=== PATIENT | male | born 1995 | race Caucasian/White ===

== ENCOUNTER 2020-03-20 23:07 | Emergency (ER) | payer OTHER ==
[2020-03-20] MEDS ORDERED: LIDOCAINE VISCOUS 2% 15 ML UDC MM STA (23:24)
[2020-03-20] MEDS ORDERED: MAG HYDROX/AL HYDROX/SIMETH 30 ML UDC PO STA (23:25)
--- NOTE | 2020-03-20 23:27 | ED Physician Documentation ---
PD HPI CHEST PAIN - Stated complaint Stated Complaint: CP/SOA - Chief complaint Chief Complaint: Cardiac - History obtained from History obtained from: Patient - History of Present Illness Timing - onset: Yesterday Timing - onset during: Rest Timing - duration: Days (1) Timing - details: Gradual onset, Still present Pain level max: 6 Pain level now: 2 Quality: Pressure Location: Substernal Radiation: No: Jaw, Neck, Back, Abdominal, Left upper extremity, Right upper extremity Improved by: Nothing Worsened by: Other (NOTHING) Associated symptoms: Shortness of air. No: Diaphoresis, Nausea, Vomiting, Feeling faint / dizzy, General Weakness, Palpitations, Cough Similar symptoms before: Diagnosis (gastritis) Recently seen: Not recently seen - Additional information Additional information: Previously well 24-year-old male was sitting on his couch yesterday watching television when he developed some substernal chest pressure and he states this persisted overnight and was worse tonight while he was again sitting watching television. He does state that he has some heartburn periodically and he is not currently taking medication for that. He denies any current use of alcohol or ibuprofen. Review of Systems Constitutional: denies: Fever Eyes: denies: Decreased vision Ears: denies: Ear pain Nose: denies: Rhinorrhea / runny nose, Congestion Throat: denies: Sore throat Cardiac: reports: Chest pain / pressure. denies: Palpitations, Pedal edema, Calf pain Respiratory: reports: Dyspnea. denies: Cough GI: denies: Abdominal Pain, Nausea, Vomiting : denies: Dysuria, Frequency PD PAST MEDICAL HISTORY - Past Medical History Cardiovascular: None Respiratory: None Endocrine/Autoimmune: None GI: None : None HEENT: None Psych: None Musculoskeletal: None Derm: None - Past Surgical History Past Surgical History: No - Present Medications Home Medications: Ambulatory Orders Medication Instructions Recorded Confirmed Famotidine 20 mg PO DAILY #30 tablet 04/30/16 Sucralfate 1 gm PO QID #20 tablet 04/30/16 Tramadol HCl 50 mg PO Q6H PRN #20 tablet 04/30/16 Tums 2 mg PO DAILY 04/30/16 Famotidine [Pepcid] 20 mg PO BID #60 tablet 03/21/20 Sucralfate [Carafate] 1 gm PO ACHS #60 tablet 03/21/20 - Allergies Allergies/Adverse Reactions: Allergies Allergy/AdvReac Type Severity Reaction Status Date / Time No Known Drug Allergies Allergy Verified 03/20/20 23:19 - Social History Does the pt smoke?: Yes Smoking Status: Current every day smoker Does the pt drink ETOH?: Yes Does the pt have substance abuse?: No - Immunizations Immunizations are current?: Yes - POLST Patient has POLST: No PD ED PE NORMAL - Vitals Vital signs reviewed: Yes (Hypertensive mild) - General General: Alert and oriented X 3, No acute distress, Well developed/nourished - HEENT HEENT: Atraumatic, PERRL, EOMI - Neck Neck: Supple, no meningeal sign, No bony TTP - Cardiac Cardiac: RRR, No murmur - Respiratory Respiratory: No respiratory distress, Clear bilaterally, Other (No chest wall tenderness) - Abdomen Abdomen: Soft, Non tender - Back Back: No CVA TTP, No spinal TTP - Derm Derm: Normal color, Warm and dry, No rash - Extremities Extremities: No deformity, No edema - Neuro Neuro: Alert and oriented X 3, seismograph shooter 2-12 intact, No motor deficit, No sensory deficit, Normal speech Eye Opening: Spontaneous Motor: Obeys Commands Verbal: Oriented GCS Score: 15 - Psych Psych: Normal mood, Normal affect Results - Vitals Vitals: Vital Signs - 24 hr 03/20/20 03/21/20 03/21/20 23:10 00:19 01:26 Temperature 36.7 C Heart Rate 78 63 59 L Respiratory 18 18 18 Rate Blood Pressure 137/71 H 110/55 L 104/63 O2 Saturation 96 98 99 Oxygen O2 Source Room air - EKG (time done) 2319 Rate: Rate (enter#) (62) Rhythm: NSR Compare to prior EKG: Unchanged from prior EKG (SPT 08-10-2015 no changes) Computer interpretation: Agree with computer - Labs Labs: Laboratory Tests 03/20/20 03/20/20 03/20/20 23:35 23:35 23:35 WBC 7.3 RBC 4.62 L Hgb 14.6 Hct 42.1 MCV 91.1 MCH 31.6 H MCHC 34.7 RDW 11.8 L Plt Count 244 MPV 10.4 Neut # (Auto) 4.2 Lymph # (Auto) 1.9 Amelia # (Auto) 0.6 Eos # (Auto) 0.5 Baso # (Auto) 0.1 Absolute Nucleated RBC 0.00 Nucleated RBC % 0.0 Sodium 140 Potassium 3.8 Chloride 107 Carbon Dioxide 24 Anion Gap 9.0 BUN 13 Creatinine 1.0 Estimated GFR (MDRD) 90 Glucose 123 H Calcium 8.9 Total Bilirubin 0.9 AST 23 ALT 30 Alkaline Phosphatase 31 L Troponin I High Sens < 2.3 L Total Protein 6.9 Albumin 4.4 Globulin 2.5 Albumin/Globulin Ratio 1.8 Lipase 36 - Rads (name of study) Chest Radiology: Prelim report reviewed (Impression: No acute findings.), EMP read indepedently, See rad report PD MEDICAL DECISION MAKING - ED course Complexity details: reviewed old records, reviewed results, re-evaluated patient, considered differential, d/w patient ED course: 24-year-old male with a prior history of gastritis has developed some chest pressure and this appears to be associated with some heartburn as well. He is administered a GI cocktail consisting of 10 mL's of viscous lidocaine and 30 mL's of Mylanta which she has some improvement in both of his symptoms. He is further administered Pepcid AC and Carafate. We will place him on a course of both of these and have him follow-up with his primary. Departure - Departure Disposition: 01 Home, Self Care Clinical Impression: Atypical chest pain Gastroesophageal reflux disease Qualifiers: Esophagitis presence: with esophagitis Qualified Code(s): K21.0 - Gastro- esophageal reflux disease with esophagitis Condition: Stable Instructions: ED GERD, Famotidine, ED Chest Pain Atypical Unkn Cause Follow-Up: ANGELLA WALKER MD [Primary Care Provider] - Prescriptions: Sucralfate [Carafate] 1 gm PO ACHS #60 tablet Famotidine [Pepcid] 20 mg PO BID #60 tablet
[2020-03-20 23:41] LABS: BASOPHILS # (AUTO) 0.1 10^3/uL (0.0-0.1); BASOPHILS % (AUTO) 0.7 %; EOSINOPHILS # (AUTO) 0.5 10^3/uL (0.0-0.7); EOSINOPHILS % (AUTO) 6.9 %; HGB - HEMOGLOBIN 14.6 g/dL (14.0-18.0); LYMPHOCYTES # (AUTO) 1.9 10^3/uL (1.5-3.5); LYMPHOCYTES % (AUTO) 26.5 %; MEAN CORPUSCULAR HEMOGLOBIN 31.6 pg (27.0-31.0); MEAN CORPUSCULAR HGB CONC 34.7 g/dL (32.0-36.0); MEAN CORPUSCULAR VOLUME 91.1 fL (80.0-94.0); MEAN PLATELET VOLUME 10.4 fL (7.4-11.4); MONOCYTES # (AUTO) 0.6 10^3/uL (0.0-1.0); MONOCYTES % (AUTO) 8.1 %; NEUTROPHILS # (AUTO) 4.2 10^3/uL (1.5-6.6); NEUTROPHILS % (AUTO) 57.7 %; PLT - PLATELET COUNT 244 10^3/uL (130-450); RED BLOOD COUNT 4.62 10^6/uL (4.70-6.10); RED CELL DISTRIBUTION WIDTH 11.8 % (12.0-15.0); WHITE BLOOD COUNT 7.3 x10^3/uL (4.8-10.8)
[2020-03-20 23:57] LABS: ALBUMIN 4.4 g/dL (3.2-5.5); ALBUMIN/GLOBULIN RATIO 1.8 (1.0-2.2); BILIRUBIN,TOTAL 0.9 mg/dL (0.2-1.0); CALCIUM 8.9 mg/dL (8.5-10.3); TOTAL PROTEIN 6.9 g/dL (6.7-8.2)
[2020-03-21] MEDS ORDERED: SUCRALFATE 1 GM/10 ML UDC PO STA (01:45)
[2020-03-21] MEDS ORDERED: FAMOTIDINE 20 MG TABLET PO STA (01:45)
[2020-03-21 02:00] VITALS: BP 111/71
--- NOTE | 2020-03-21 09:32 | XRAY Report ---
PROCEDURE: Chest 1 View X-Ray INDICATIONS: chest pain TECHNIQUE: One view of the chest was acquired. COMPARISON: 08/10/2015 FINDINGS: Surgical changes and devices: None. Lungs and pleura: No pleural effusions or pneumothorax. Lungs are clear. Mediastinum: Mediastinal contours appear normal. Heart size is normal. Bones and chest wall: No suspicious bony lesions. Overlying soft tissues appear unremarkable. IMPRESSION: Portable chest within normal limits for age. Note: No significant discrepancy from the preliminary report. Reviewed by: Jonathan Zavala MD on 03/21/2020 8:31 AM ANJU Approved by: Jonathan Zavala MD on 03/21/2020 8:31 AM ANJU Station ID: [id number]
== END 2020-03-21 02:01 | disposition home or self-care (01) ==
LOC: ED 23:07
DX: R07.89 Other chest pain (principal); K21.0 Gastro-esophageal reflux disease with esophagitis; F17.200 Nicotine dependence, unspecified, uncomplicated
CPT/HCPCS: 36415; 71045; 80053; 83690; 84484; 85025; 93005; 99284; A9270